=== PATIENT | female | born 1975 | race African-American/Black ===

== ENCOUNTER 2016-06-10 21:50 | Emergency (ER) | payer MEDICARE, OTHER ==
[2016-06-10 21:45] LABS: URINE SOURCE CLEAN CATCH
[2016-06-10 21:47] LABS: URINE APPEARANCE CLEAR; URINE BILIRUBIN NEG (NEG); URINE BLOOD 1+ (NEG); URINE COLOR YELLOW; URINE GLUCOSE NEG (NORM); URINE KETONE NEG (NEG); URINE LEUKOCYTE ESTERASE 1+ (NEG); URINE NITRATE NEG (NEG); URINE PROTEIN TRACE (NEG); URINE SPECIFIC GRAVITY 1.025 (1.003-1.035)
[2016-06-10 21:48] LABS: MICRO INDICATED? YES
[~2016-06-10 21:50] MED LIST: ALBUTEROL17 GM INH; ALBUTEROL20 ml INH; AMITIZA24 MCG PO; BENTYL10 MG PO; BENTYL20 MG PO; BIAXIN PO; CIPRO PO; CLONIDINE PO; CODEINE PO; COREG; COREG PO; COREG12.5 MG PO; EC-NAPROSYN500 MG PO; FLAGYL PO; FLEXERIL PO; HCTZ PO; IBUPROFEN PO; IBUPROFEN800 MG PO; K-DUR20 ME1 PO; KETOPROFEN PO; LINZESS145 MCG PO; LIPITOR PO; LISINOPRIL PO; MEDROL PO; MONISTAT 7100 MG/SUP VG; NEURONTIN PO; NEURONTIN600 MG PO; NORVASC PO; NORVASC10 MG PO; OMEPRAZOLE40 MG PO; PERCOCET5/325 PO; PHENERGAN25 MG PO; PRILOSEC PO; TESSALON PERLE100 M1 PO; TYLENOL #3 PO; ULTRAM PO; VICODIN PO; VOLTAREN75 MG PO; ZESTRIL40 MG PO; ZITHROMAX PO; ZOCOR; ZOFRAN ODT4 MG SL; [UNRECOGNIZED DRUG - CODE] RC
[2016-06-10 21:54] LABS: CULTURE INDICATED? YES; URINE BACTERIA 1+ (NEG); URINE SQUAMOUS EPITHELIAL CELL FEW /[HPF]; URINE WBC 25-50 /[HPF] (0-5)
[2016-06-10 21:55] LABS: URINE MUCUS PRESENT
== END 2016-06-10 22:20 | disposition home or self-care (01) ==
LOC: SED 21:50
PROVIDERS: Physician Assistant
DX: N75.1 Abscess of Bartholin's gland (principal); N39.0 Urinary tract infection, site not specified; Z90.49 Acquired absence of other specified parts of digestive tract; F17.210 Nicotine dependence, cigarettes, uncomplicated; Z88.5 Allergy status to narcotic agent; Z79.899 Other long term (current) drug therapy
CPT/HCPCS: 10060; 81003; 87070; 87077; 87086; 87088; 87186; 87205; 99283